=== PATIENT | male | born 1965 | race Caucasian/White ===

== ENCOUNTER 2022-10-26 18:49 | Emergency (ER) | payer SELFPAY | END 2022-10-26 19:50 | disposition left against medical advice (07) | PROVIDERS: Emergency Provider Emergency Medicine ==

== ENCOUNTER → 2023-06-10 20:22 | Outpatient (CLI) | payer OTHER, SELFPAY ==
--- NOTE | 2023-06-10 | DI.RAD.S_ITS ---
PROCEDURE: XR LUMBAR SPINE MIN 4V INDICATIONS: BACK PAIN TECHNIQUE: 5 views of the lumbar spine acquired, including flexion and extension views. COMPARISON: None. FINDINGS: Bones: 5 nonrib-bearing vertebrae are present moderate degenerative changes are present at L5-S1 including intervertebral disc space narrowing and osteophytosis. There is normal bony alignment. No vertebral body compression fractures. No suspicious bony lesions. Soft tissues: Overlying bowel gas pattern is normal. No suspicious soft tissue calcifications. Flexion/extension: There is limited range of motion from flexion to extension. No subluxation. IMPRESSION: No acute bony abnormality. No subluxation on flexion/extension. Mild degenerative change at L5-S1. Dictated by: Isa Adams M.D. on 06/11/2023 at 20:17 Approved by: Isa Adams M.D. on 06/11/2023 at 20:19
== END ==
LOC: RAD 20:27
PROVIDERS: Referring Provider Registered Nurse; Visit Provider Registered Nurse
DX: M47.817 Spondylosis without myelopathy or radiculopathy, lumbosacral region (principal); N52.9 Male erectile dysfunction, unspecified; R39.15 Urgency of urination; M54.50 Low back pain, unspecified; G89.29 Other chronic pain
CPT/HCPCS: 72110

== ENCOUNTER 2023-08-12 00:44 | Emergency (ER) | payer OTHER, SELFPAY ==
[2023-08-12] VITALS (7 sets, daily range): BP systolic 131–155; BP diastolic 79–88; PULSE 66–79; RESP 18; TEMP 36.3; O2SAT 96–100; BMI 30.8
--- NOTE | 2023-08-12 00:59 | DI.CT.S_ITS ---
PROCEDURE: CT KIDNEY URETER BLADDER (KUB) INDICATIONS: sudden right flank pain TECHNIQUE: Axial sections were acquired from the lung bases to the pubic symphysis. Coronal and sagittal reformats were performed. For radiation dose reduction, the following was used: automated exposure control, adjustment of mA and/or kV according to patient size. COMPARISON: None. FINDINGS: Image quality: Diagnostic. Lower Chest: No significant findings. URINARY: Right Kidney: Mild prominence of right renal collecting system is seen. No obstructing stone is noted. Right Ureter: Mild right hydroureter with tiny 2-3 mm stone seen in distal right ureter just proximal to right UVJ best seen on series 4, image 41 and series 2, image 77. Left Kidney: Nonobstructing stones are noted in left kidney measures 1-2 mm in size. No hydronephrosis. Left Ureter: No hydroureter. Bladder: Normal wall thickness. No stones. ABDOMEN: Liver: No contour-deforming solid mass. Moderate hepatic steatosis is seen. Gallbladder: No radiopaque gallstones or wall thickening. Biliary ducts: No biliary dilation. Pancreas: No ductal dilation. Spleen: Size is within normal limits. Adrenal Glands: No adrenal nodules. Stomach and Bowel: There is a small hiatal hernia. No bowel obstruction or abnormal bowel wall thickening. No mesenteric stranding. Appendix is visualized and is within normal limits. No abscess collection. Peritoneum: No abnormal intraperitoneal fluid. No free air. Ventral Wall: No hernia. Abdominal Nodes: No enlarged retroperitoneal or mesenteric lymph nodes. Vessels: Aorta and inferior vena cava are normal in size. PELVIS: Pelvic Organs: Unremarkable. Pelvic Nodes: Unremarkable. Miscellaneous: No inguinal hernias are seen. Bones: No aggressive appearing bony lesions. No acute vertebral body compression fracture. Degenerative disc disease at L4-5 and L5-S1 are seen. IMPRESSION: 1. Tiny 2-3 mm right distal ureteral stone with mild right-sided hydronephrosis and proximal to mid hydroureter. 2. Tiny nonobstructing left renal calculi. No left-sided hydronephrosis or hydroureter. Normal appearing urinary bladder. 3. Normal appendix. No bowel obstruction or abnormal bowel wall thickening. No abscess collection. No free fluid or free air. 4. Moderate hepatic steatosis. Dictated by: Car Lane M.D. on 08/12/2023 at 1:30 Approved by: Car Lane M.D. on 08/12/2023 at 1:35
[2023-08-12] MEDS: KETOROLAC 30 MG/ML VIAL 15 MG IV (01:41)
[2023-08-12] MEDS: ONDANSETRON 4 MG/2 ML INJ IV (01:43)
[2023-08-12 01:55] LABS: Add Manual Diff / Slide Review NO; Basophils Absolute Auto 100 /uL (0-100); Basophils Percent Auto 0.7 % (0-2); Eosinophils Absolute Auto 500 /uL (0-450); Eosinophils Percent Auto 6.4 % (2-4); Hematocrit 43.8 % (41-53); Hemoglobin 15.1 g/dL (13.5-17.5); Lymphocytes Absolute Auto 2700 /uL (1100-4500); Lymphocytes Percent Auto 32.8 % (25-40); Mean Corpuscular HGB Conc 34.4 % (30-36); Mean Corpuscular Hemoglobin 29.1 PG (26-34); Mean Corpuscular Volume 84.5 fL (80-100); Monocytes Absolute Auto 700 /uL (0-900); Neutrophils Absolute Auto 4200 /uL (1500-7000); Neutrophils Percent Auto 51.1 % (50-75); Platelet Count 233 X10^3/uL (150-400); Red Blood Cell Count 5.18 X10^6/uL (4.5-5.9); Red Cell Distribution Width 13.9 % (11.6-14.8); White Blood Cell Count 8.2 X10^3/uL (4.5-11.0)
[2023-08-12 02:13] LABS: Alanine Aminotransferase 52 IU/L (<50); Albumin 4.4 g/dL (3.5-5.0); Albumin Globulin Ratio 1.6 (1.0-2.8); Alkaline Phosphatase 75 U/L (38-126); Aspartate Aminotransferase 36 IU/L (17-59); BUN Creatinine Ratio 18.6 (6-22); Bilirubin Total 0.5 mg/dL (0.2-1.3); Blood Urea Nitrogen 21 mg/dL (9-20); Calcium 9.7 mg/dL (8.4-10.2); Carbon Dioxide 25 mmol/L (22-32); Chloride 109 mmol/L (98-107); Estimated Glomerular Filt Rate > 60 mL/min (>60); Globulin 2.8 g/dL (1.7-4.1); Glucose 148 mg/dL (70-100); HEMOLYSIS 35 (0-50); Potassium 3.7 mmol/L (3.4-5.1); Sodium 140 mmol/L (137-145); Total Protein 7.2 g/dL (6.3-8.2)
[2023-08-12 02:19] LABS: Bacteria Urine None Seen; Culture Indicated Urine Cult Not Indicated; RBC Urine 0-1/HPF (0-5/HPF); Squamous Epithelial Cell Urine 0-1 /HPF (0-5/HPF); Urine Volume 10mL (spun); WBC Urine None Seen (0-5/HPF)
--- NOTE | 2023-08-12 02:36 | ED_ITS ---
HPI - Back Pain/Injury General Chief Complaint: Back Pain/Injury Stated Complaint: rt side abd pain Time Seen by Provider: 08/12/23 02:36 Source: patient History of Present Illness HPI Narrative: 58-year-old male with no known history of gallbladder problems, no history of prior kidney stones, complains of acute onset atraumatic right flank pain about midnight, with some nausea nonbloody emesis single episode. No similar episodes of this pain before. He has not tried any medications. No diarrhea, black stools, red stools. No recent lifting, falls, blows, new activities. Symptoms not worse with deep breathing or truncal movements. No fevers or chills or shortness of breath. No diaphoresis. No blood in urine, no pain on urination. Related Data Home Medications Medication Instructions Recorded Confirmed aspirin 81 mg chewable tablet 81 mg PO QDAY ##0 08/06/16 montelukast 10 mg tablet 10 mg PO QDAY ##0 08/06/16 (Singulair) Previous Rx's Medication Instructions Recorded meclizine 25 mg tablet 25 mg PO Q8HP PRN #20 tabs 08/07/16 naproxen 500 mg tablet 500 mg PO BID 7 days #14 tabs 08/12/23 tamsulosin 0.4 mg capsule 0.8 mg (2 x 0.4 mg) PO DAILY 7 08/12/23 days #14 caps tramadol 100 mg tablet 100 mg PO Q6H PRN pain #20 tabs 08/12/23 Allergies Allergy/AdvReac Type Severity Reaction Status Date / Time No Known Drug Allergies Allergy Verified 08/12/23 00:51 Review of Systems Review of Systems Narrative: As per HPI Patient History Social History Smoking Status: Never smoker Smoking Status: Never smoker Substance Use Type: does not use Exam Narrative Exam Narrative: GENERAL: Well-developed patient, in mild distress after initial IV treatment initiated from waiting room. HEAD: Atraumatic. Normocephalic. EYES: Pupils equal round and reactive. Extraocular motions intact. No scleral icterus. No injection or drainage. ENT: Nose without bleeding, purulent drainage. Throat without erythema, tonsillar hypertrophy or exudate. Airway patent. NECK: Trachea midline. Non tender CARDIOVASCULAR: Regular rate and rhythm without murmurs, gallops, or rubs. RESPIRATORY: Clear to auscultation. Breath sounds equal bilaterally. No wheezes, rales, or rhonchi. GASTROINTESTINAL: Abdomen soft, non-tender, nondistended. EXTREMITIES: No edema or joint tenderness. BACK: Nontender without deformity or crepitance. No flank tenderness. NEURO: AOx3. SKIN: No rash or erythema of visible areas Initial Vital Signs Initial Vital Signs: Vital Signs Temperature 97.4 F L 08/12/23 00:52 Pulse Rate 79 08/12/23 00:52 Respiratory Rate 18 08/12/23 00:52 Blood Pressure 155/84 H 08/12/23 00:52 Pulse Oximetry 100 08/12/23 00:52 Oxygen Delivery Method Room Air 08/12/23 00:52 Course Orders Ordered: ED Orders 08/12/23 00:59 CT kidney ureter bladder (KUB) Stat 08/12/23 01:40 Complete Blood Count AUTO DIFF Stat Comprehensive Metabolic Panel Stat 08/12/23 01:57 Urine Microscopic Stat Discontinued Medications Ketorolac Tromethamine (Ketorolac 30 Mg/Ml Vial) 15 mg IV NOW ONE Stop: 08/12/23 00:59 Last Admin: 08/12/23 01:41 Dose: 15 mg Documented By: ALCIRA Ondansetron HCl (Ondansetron 4 Mg/2 Ml Inj) 4 mg IV NOW ONE Stop: 08/12/23 00:59 Last Admin: 08/12/23 01:43 Dose: 4 mg Documented By: ALCIRA Ondansetron HCl (Ondansetron 4 Mg Odt Prepack) 1 bottle MISC DIRECTED ONE Stop: 08/12/23 03:10 Last Admin: 08/12/23 03:38 Dose: 1 bottle Documented By: Tamsulosin HCl (Tamsulosin 0.4 Mg Capsule) 0.4 mg PO NOW ONE Stop: 08/12/23 02:50 Last Admin: 08/12/23 03:09 Dose: 0.4 mg Documented By: Tramadol HCl (Tramadol 50 Mg Prepack) 1 bottle MISC DIRECTED ONE Stop: 08/12/23 03:10 Last Admin: 08/12/23 03:38 Dose: 1 bottle Documented By: Tramadol HCl (Tramadol 50 Mg Tablet) 50 mg PO NOW ONE Stop: 08/12/23 03:10 Last Admin: 08/12/23 03:38 Dose: 50 mg Documented By: AB Vital Signs Vital signs: Vital Signs - 8 hr 08/12/23 00:52 08/12/23 02:25 08/12/23 02:26 Temperature 97.4 F L Pulse Rate 79 68 Respiratory Rate 18 Blood Pressure 155/84 H Pulse Oximetry 100 97 97 Oxygen Delivery Method Room Air 08/12/23 02:26 08/12/23 02:30 08/12/23 02:30 Temperature Pulse Rate 66 Respiratory Rate Blood Pressure 135/81 131/79 Pulse Oximetry 96 Oxygen Delivery Method 08/12/23 03:00 08/12/23 03:00 08/12/23 03:40 Temperature Pulse Rate 70 Respiratory Rate Blood Pressure 150/82 H Pulse Oximetry 97 97 Oxygen Delivery Method 08/12/23 03:41 08/12/23 03:41 Temperature Pulse Rate 77 Respiratory Rate Blood Pressure 149/88 H Pulse Oximetry 98 Oxygen Delivery Method Room Air MDM - Back Pain/Injury Lab Data Attestation: I reviewed the patient's lab results. Lab results narrative: CBC, CMP unremarkable, urinalysis negative 08/12/23 01:40 08/12/23 01:40 Labs: Lab Results 08/12/23 08/12/23 Range/Units 01:40 01:57 WBC 8.2 (4.5-11.0) X10^3/uL RBC 5.18 (4.5-5.9) X10^6/uL Hgb 15.1 (13.5-17.5) g/dL Hct 43.8 (41-53) % MCV 84.5 (80-100) fL MCH 29.1 (26-34) PG MCHC 34.4 (30-36) % RDW 13.9 (11.6-14.8) % Plt Count 233 (150-400) X10^3/uL Neut % (Auto) 51.1 (50-75) % Lymph % (Auto) 32.8 (25-40) % [place] % (Auto) 9.0 (3-14) % Eos % (Auto) 6.4 H (2-4) % Baso % (Auto) 0.7 (0-2) % Neut # (Auto) 4200 (8465-3718) /uL Lymph # (Auto) 2700 (7105-8109) /uL [place] # (Auto) 700 (0-900) /uL Eos # (Auto) 500 H (0-450) /uL Baso # (Auto) 100 (0-100) /uL Sodium 140 (137-145) mmol/L Potassium 3.7 (3.4-5.1) mmol/L Chloride 109 H (98-107) mmol/L Carbon Dioxide 25 (22-32) mmol/L BUN 21 H (9-20) mg/dL Creatinine 1.13 (0.66-1.25) mg/dL Estimated GFR > 60 (>60) mL/min BUN/Creatinine Ratio 18.6 (6-22) Glucose 148 H (70-100) mg/dL Calcium 9.7 (8.4-10.2) mg/dL Total Bilirubin 0.5 (0.2-1.3) mg/dL AST 36 (17-59) IU/L ALT 52 H (<50) IU/L Alkaline Phosphatase 75 (38-126) U/L Total Protein 7.2 (6.3-8.2) g/dL Albumin 4.4 (3.5-5.0) g/dL Globulin 2.8 (1.7-4.1) g/dL Albumin/Globulin Ratio 1.6 (1.0-2.8) Urine RBC 0-1/hpf (0-5/HPF) Urine WBC None seen (0-5/HPF) Ur Squamous Epith Cells 0-1 /hpf (0-5/HPF) Urine Bacteria None seen (None) Ur Culture Indicated? Cult not indicated Vol Urine Centrifuged 10ml (spun) Urine Dip Bedside Urine Glucose Negative Bedside Urine Bilirubin - Negative Bedside Urine Ketone - Negative Urine Specific [place] 1.025 Bedside Urine Occult Blood + Bedside Urine pH 6.0 Bedside Urine Protein - Negative Bedside Urine Urobilinogen - Negative Bedside Urine Nitrite - Negative Bedside Urine Leukocytes - Negative Esterase Imaging Data CT scan - abdomen/pelvis: Radiologist's Impression: [address] [address] [address] Scan Report Signed Patient: Maxime Holcomb MR#: [id number] : 1965 Acct:[id number] Age/Sex: 58 / M Date of Service: 08/12/23 Loc: ED Accession Number: [id number] Procedure: CT kidney ureter bladder (KUB) Ordering Provider: Wilder Reynolds MD PROCEDURE: CT KIDNEY URETER BLADDER (KUB) INDICATIONS: sudden right flank pain TECHNIQUE: Axial sections were acquired from the lung bases to the pubic symphysis. Coronal and sagittal reformats were performed. For radiation dose reduction, the following was used: automated exposure control, adjustment of mA and/or kV according to patient size. COMPARISON: None. FINDINGS: Image quality: Diagnostic. Lower Chest: No significant findings. URINARY: Right Kidney: Mild prominence of right renal collecting system is seen. No obstructing stone is noted. Right Ureter: Mild right hydroureter with tiny 2-3 mm stone seen in distal right ureter just proximal to right UVJ best seen on series 4, image 41 and series 2, image 77. Left Kidney: Nonobstructing stones are noted in left kidney measures 1-2 mm in size. No hydronephrosis. Left Ureter: No hydroureter. Bladder: Normal wall thickness. No stones. ABDOMEN: Liver: No contour-deforming solid mass. Moderate hepatic steatosis is seen. Gallbladder: No radiopaque gallstones or wall thickening. Biliary ducts: No biliary dilation. Pancreas: No ductal dilation. Spleen: Size is within normal limits. Adrenal Glands: No adrenal nodules. Stomach and Bowel: There is a small hiatal hernia. No bowel obstruction or abnormal bowel wall thickening. No mesenteric stranding. Appendix is visualized and is within normal limits. No abscess collection. Peritoneum: No abnormal intraperitoneal fluid. No free air. Ventral Wall: No hernia. Abdominal Nodes: No enlarged retroperitoneal or mesenteric lymph nodes. Vessels: Aorta and inferior vena cava are normal in size. PELVIS: Pelvic Organs: Unremarkable. Pelvic Nodes: Unremarkable. Miscellaneous: No inguinal hernias are seen. Bones: No aggressive appearing bony lesions. No acute vertebral body compression fracture. Degenerative disc disease at L4-5 and L5-S1 are seen. IMPRESSION: 1. Tiny 2-3 mm right distal ureteral stone with mild right-sided hydronephrosis and proximal to mid hydroureter. 2. Tiny nonobstructing left renal calculi. No left-sided hydronephrosis or hydroureter. Normal appearing urinary bladder. 3. Normal appendix. No bowel obstruction or abnormal bowel wall thickening. No abscess collection. No free fluid or free air. 4. Moderate hepatic steatosis. Dictated by: Car Lane M.D. on 08/12/2023 at 1:[address]: Car Lane M.D. on 08/12/2023 at 1:35 [facility] Narrative Medical decision making narrative: 58-year-old male with atraumatic acute onset right flank pain, no history of kidney stones or gallbladder problems known, initially reported to be writhing in discomfort in waiting room, kidney stone suspected clinically by nursing, IV Toradol given, IV Zofran given, improved symptoms. Labs sent, unremarkable serum studies, renal function normal, urinalysis negative. CT abdomen and pelvis shows 2-3 mm diameter stone right ureter, also nonobstructing small stones left kidney noted, steatosis incidentally noted. No fever, urinalysis not suggestive of infection, no antibiotics indicated at this time. Oral tramadol dose given in the ED, home pack was applied, prescription sent to his pharmacy. Consider use of naproxen anti-inflammatory pain medication. Consider use of tamsulosin for stone expulsion although stone is not particularly proximal or particularly large, patient willing to try the tamsulosin expulsive therapy, daily dose prescription for the next week sent to his pharmacy. Urine strainer for discharge. Home pack Zofran to use for nausea control. Improved, discharged home with his . Follow up with Urology advised, contact information provided for clinic. Return precautions discussed Critical Care Time Critical Care Time Critical Care Time: Yes Total Critical Care Time: 31 Attestation: The high probability of a clinically significant, sudden or life threatening deterioration of the [abdominal pelvic, genitourinary] system(s) required my full and direct attention, intervention and personal management. The aggregate critical care time was [31] minutes. This time is in addition to time spent performing reported procedures but includes the following: [x] Data Review and interpretation [x] Patient assessment and monitoring of vital signs [x] Documentation [x] Medication orders and management Discharge Plan Departure Patient Disposition: Home Clinical Impression: Right flank pain, Right ureteral stone, Left renal stone, Fatty liver Instructions: DI for Kidney Stones Activity Restrictions/Additional Instructions: Acute onset right flank pain without known trauma, no fever on triage, no tenderness on percussion to the right or the left flank. Serum studies unremarkable. Urinalysis without obvious infection. CT abdomen and pelvis showed presence of a small right-sided ureteral stone, and also some small stones within the left kidney that are not currently obstructing, and also an incidental finding of fatty liver (steatosis). Symptoms improved with IV and oral medications. Home pack of pain medications, anti-inflammatory pain medication, tamsulosin expulsive therapy medication, antinausea medication. Drink plenty of fluids. Strain urine for passage of stone/sediment, as this might be amenable to stone analysis, to see if you have the type of stones that could be treated with medical therapy your dietary therapy or other nonsurgical approaches. Follow up with local urologist, contact information given to Clinic, call his office tomorrow for close follow up early next week. Return to this/nearest emergency department for any change worsening symptoms or any concerns prior Prescriptions: New naproxen 500 mg tablet 500 mg PO BID 7 Days Qty: 14 0RF tramadol 100 mg tablet 100 mg PO Q6H PRN (Reason: pain) Qty: 20 0RF Rx Instructions: DNExceed 4 doses/24h tamsulosin 0.4 mg capsule 0.8 mg PO DAILY 7 Days Qty: 14 0RF No Action aspirin 81 MG tablet,chewable 81 mg PO QDAY Qty: 0 montelukast [Singulair] 10 MG tablet 10 mg PO QDAY Qty: 0 meclizine 25 MG tablet 25 mg PO Q8HP PRNQty: 20 0RF Referrals: Miscellaneous,Doctor, [Primary Care Provider] - Fabien Suh MD [Physician] - Stand Alone Forms: Patient Portal/API
[2023-08-12] MEDS: TAMSULOSIN 0.4 MG CAPSULE PO (03:09)
[2023-08-12] MEDS: TRAMADOL 50 MG PREPACK 1 BOTTLE MISC (03:38)
[2023-08-12] MEDS: TRAMADOL 50 MG TABLET PO (03:38)
[2023-08-12] MEDS: ONDANSETRON 4 MG ODT PREPACK 1 BOTTLE MISC (03:38)
== END 2023-08-12 03:51 | disposition home or self-care (01) ==
PROVIDERS: Emergency Provider Emergency Medicine
DX: N20.1 Calculus of ureter (principal); N20.0 Calculus of kidney; K76.0 Fatty (change of) liver, not elsewhere classified
CPT/HCPCS: 36415; 74176; 80053; 81003; 81015; 85025; 96374; 96375; 99284; J1885; J2405

== ENCOUNTER 2024-03-21 18:16 | Emergency (ER) | payer OTHER, SELFPAY ==
[2024-03-21 18:25] VITALS: BP 118/71; PULSE 74; RESP 18; TEMP 36.7; O2SAT 96; BMI 30.7
--- NOTE | 2024-03-21 18:33 | DI.RAD.S_ITS ---
PROCEDURE: XR RIBS LT MIN 3V W CXR1V INDICATIONS: r/o fx TECHNIQUE: 3 views of the ribs were acquired, along with a single view chest. COMPARISON: None. FINDINGS: Surgical changes and devices: None. Bones and chest wall: No fractures or dislocations. No suspicious bony lesions. Overlying soft tissues appear unremarkable. Lungs and pleura: No pleural effusions or pneumothorax. Lungs appear clear. Mediastinum: Mediastinal contours appear normal. Heart size is normal. IMPRESSION: No visualized acute fracture or dislocation. However, if clinical concern and/or pain persist, short interval imaging followup in 7-10 days is recommended, as occult injury cannot be definitively excluded. Dictated by: Cee Martinez M.D. on 03/21/2024 at 19:24 Approved by: Cee Martinez M.D. on 03/21/2024 at 19:25
[2024-03-21 21:16] VITALS: BP 134/89; PULSE 64; RESP 20; O2SAT 100
--- NOTE | 2024-03-21 21:47 | ED.FALL ---
HPI - Fall General Chief Complaint: Fall Stated Complaint: GLF, Head/Back Injury Time Seen by Provider: 03/21/24 21:47 History of Present Illness HPI Narrative: 59-year-old man no significant past medical history comes into the ED from home for evaluation of rib pain. States that he had a mechanical trip and fall states he slipped on the ice landed on his back and hit back of his head on the ground earlier this morning at around 8:00 a.m.. He denies LOC denies blood thinners. States that he is specifically complaining of left-sided rib pain. Denies any other injury or pain. Related Data Home Medications Medication Instructions Recorded Confirmed aspirin 81 mg chewable tablet 81 mg PO QDAY ##0 08/06/16 montelukast 10 mg tablet 10 mg PO QDAY ##0 08/06/16 (Singulair) Previous Rx's Medication Instructions Recorded meclizine 25 mg tablet 25 mg PO Q8HP PRN #20 tabs 08/07/16 tramadol 100 mg tablet 100 mg PO Q6H PRN pain #20 tabs 08/12/23 cyclobenzaprine 10 mg tablet 10 mg PO BEDTIME PRN muscle spasm 03/21/24 1 week #7 tabs naproxen 500 mg tablet (Naprosyn) 500 mg PO BID PRN pain 1 week #14 03/21/24 tabs Allergies Allergy/AdvReac Type Severity Reaction Status Date / Time No Known Drug Allergies Allergy Verified 08/12/23 00:51 Review of Systems Review of Systems Narrative: General: Denies fever, chills, weight loss HEENT: Denies headache, eye drainage, eye irritation, head trauma, sore throat, voice change Cardiovascular: Denies any chest pain, palpitations, shortness of breath, tachycardia Respiratory: Denies any shortness of breath, cough, wheeze, stridor GI/: Denies any abdominal pain, nausea, vomiting, diarrhea, bright red blood per rectum, melanotic stools, urinary frequency, urinary retention, dysuria, hematuria MSK: Positive left-sided rib pain Skin: Denies any rashes, lesions, discoloration Neuro: Denies any headache, lightheadedness, dizziness, fainting, weakness Psych: Denies SI/HI Patient History Social History Smoking Status: Never smoker Smoking Status: Never smoker Exam Narrative Exam Narrative: General: Cooperative, comfortable, well-developed, not in acute distress HEENT: Normocephalic, atraumatic, PERRLA, normal sclera, eyelids normal, Neck: Active full range of motion, atraumatic Chest: Normal to inspection, negative crepitus, no overlying erythema ecchymosis Respiratory: Normal respiratory effort, not in acute respiratory distress, clear to auscultation bilaterally negative cough, wheeze, tachypnea, rhonchi, rales Cardiology: Regular rate rhythm negative gallop, murmur, rubs GI/: Normal to inspection, soft, nonrigid, no tenderness to palpation, exam deferred MSK: Full range of active range of motion of all 4 extremities, atraumatic, bilateral upper and lower extremities neurovascularly intact there is no tenderness to palpation of any bony prominences there is no tenderness to palpation of the midline cervical thoracic lumbar spine. Able to stand bear weight ambulate unassisted here in the emergency department Skin: No rashes lesions noted Neuro: Alert awake oriented x3, moves all 4 extremities spontaneously, cranial nerves intact, able to answer all questions appropriately follows commands appropriately Psych: Cooperative, negative suicidal or homicidal ideations Initial Vital Signs Initial Vital Signs: Vital Signs Temperature 98.0 F 03/21/24 18:25 Pulse Rate 74 03/21/24 18:25 Respiratory Rate 18 03/21/24 18:25 Blood Pressure 118/71 03/21/24 18:25 Pulse Oximetry 96 03/21/24 18:25 Oxygen Delivery Method Room Air 03/21/24 18:25 Course Orders Ordered: ED Orders 03/21/24 18:33 XR ribs LT min 3V w CXR1V Stat Vital Signs Vital signs: Vital Signs - 8 hr 03/21/24 18:25 03/21/24 21:16 Temperature 98.0 F Pulse Rate 74 64 Respiratory Rate 18 20 Blood Pressure 118/71 134/89 Pulse Oximetry 96 100 Oxygen Delivery Method Room Air Room Air MDM - Fall Differential Diagnosis Differential diagnosis: Likely other (Contusion, fracture, hematoma) Imaging Data Chest x-ray: Radiologist's Impression: [address] [address] XRay Report Signed Patient: Maxime Holcomb MR#: [id number] : 1965 Acct:[id number] Age/Sex: 59 / M Date of Service: 03/21/24 Loc: ED Accession Number: [id number] Procedure: XR ribs LT min 3V w CXR1V Ordering Provider: Dexter Harper D.O. PROCEDURE: XR RIBS LT MIN 3V W CXR1V INDICATIONS: r/o fx TECHNIQUE: 3 views of the ribs were acquired, along with a single view chest. COMPARISON: None. FINDINGS: Surgical changes and devices: None. Bones and chest wall: No fractures or dislocations. No suspicious bony lesions. Overlying soft tissues appear unremarkable. Lungs and pleura: No pleural effusions or pneumothorax. Lungs appear clear. Mediastinum: Mediastinal contours appear normal. Heart size is normal. IMPRESSION: No visualized acute fracture or dislocation. However, if clinical concern and/or pain persist, short interval imaging followup in 7-10 days is recommended, as occult injury cannot be definitively excluded. MDM Narrative Medical decision making narrative: 59-year-old male without any significant past medical history comes into the ED for left-sided rib pain after mechanical trip and fall on ice earlier today. States that he did hit his head but denies loss of conscious not on any blood thinners, states that he would persistent pain therefore decided come into the ED for further evaluation treatment. Patient did have x-ray of his ribs did not show any fractures, I did offer patient additional imaging such as CT scan of the head neck and chest to rule out any other acute fractures, however patient states that he has been ?waiting too long states that he feels fine he just wants something to help with his symptoms. Patient will be sent home lidocaine patches, Flexeril and Naprosyn, was given strict return precautions he verbalized understanding of this and agrees to being discharged home with outpatient follow up Discharge Plan Departure Patient Disposition: Home Clinical Impression: Contusion of rib, Ground-level fall Instructions: DI for Rib Contusion Activity Restrictions/Additional Instructions: Please read the discharge instructions sheet carefully and bring all papers to all doctor follow-up visits, as it may contain information that your doctor may want to see. Disease processes change and evolve, if your symptoms worsen or if you develop any new symptoms that are concerning to you please return for evaluation. Your evaluation today does not show any evidence of any life-threatening/serious illnesses requiring admission to the hospital or surgery. Please follow-up with your doctor for re-evaluation in approximately 1 day. Seek immediate medical attention for any worrisome symptoms. *If you do not have a primary care provider please contact the [facility] Resource line at [phone]. They will ask some questions about your medical history and help get you set up with a doctor in the community. Prescriptions: New cyclobenzaprine 10 mg tablet 10 mg PO BEDTIME PRN (Reason: muscle spasm) 7 Days Qty: 7 0RF naproxen [Naprosyn] 500 mg tablet 500 mg PO BID PRN (Reason: pain) 7 Days Qty: 14 0RF No Action aspirin 81 MG tablet,chewable 81 mg PO QDAY Qty: 0 montelukast [Singulair] 10 MG tablet 10 mg PO QDAY Qty: 0 meclizine 25 MG tablet 25 mg PO Q8HP PRNQty: 20 0RF tramadol 100 mg tablet 100 mg PO Q6H PRN (Reason: pain) Qty: 20 0RF Rx Instructions: DNExceed 4 doses/24h Referrals: Miscellaneous,Doctor, MD [Primary Care Provider] - Stand Alone Forms: Patient Portal/API/Survey
[2024-03-21] MEDS: CYCLOBENZAPRINE 10 MG TABLET PO (22:02)
[2024-03-21] MEDS: LIDOCAINE 5% PATCH 1 EACH TOP (22:02)
[2024-03-21] MEDS: NAPROXEN 250 MG TABLET 500 MG PO (22:02)
== END 2024-03-21 22:15 | disposition home or self-care (01) ==
PROVIDERS: Emergency Provider Student in an Organized Health Care Education/Training Program
DX: S20.212A Contusion of left front wall of thorax, initial encounter (principal); W00.0XXA Fall on same level due to ice and snow, initial encounter
CPT/HCPCS: 71101; 99283